=== PATIENT | male | born 1980 | race American Indian/Alaskan Native ===

== ENCOUNTER 2021-10-22 18:22 | Emergency (ER) | payer MEDICAID ==
[2021-10-22 18:39] VITALS: BP 100/70
--- NOTE | 2021-10-22 19:24 | Emergency Department Report ---
HPI - General Chief Complaint: Alcohol PUI?: No Time Seen by Provider: 10/22/21 19:05 - HPI HPI: This patient is a male with unknown name unknown age unknown date of , who was brought in by EMS. EMS personnel is not readily available for me to speak to them directly. Charge nurse and Anh reports she was informed by EMS that the patient was found lying down at a gas station. He appeared intoxicated with alcohol. EMS was called and they states that the patient refused to give them his name. He is found to have multiple pieces of male in his pockets and these pieces of male had the names of different people. When asked emergency department his name, the patient states "nope!". Pt does not provide further information. ED Review of Systems ROS: Stated complaint: ETOH/AMS Other details as noted in HPI Physical Exam - Physical Exam Vital Signs: Vital Signs 10/22/21 18:33 Pulse Rate 75 Respiratory 16 Rate Blood Pressure 100/70 [Left] O2 Sat by Pulse 100 Oximetry ED Course Vital Signs 10/22/21 18:33 Pulse Rate 75 Respiratory 16 Rate Blood Pressure 100/70 [Left] O2 Sat by Pulse 100 Oximetry Critical care attestation.: If time is entered above; I have spent that time in minutes in the direct care of this critically ill patient, excluding procedure time. ED Disposition Condition: Stable
[2021-10-22 19:34] LABS: Basophils # (Auto) 0.1 K/mm3 (0.0-0.1); Basophils % (Auto) 0.7 % (0.0-1.8); Eosinophils # (Auto) 0.2 K/mm3 (0.0-0.4); Eosinophils % (Auto) 2.3 % (0.0-4.3); Hematocrit 46.3 % (35.5-45.6); Hemoglobin 15.4 gm/dl (11.8-15.2); Lymphocytes # (Auto) 1.6 K/mm3 (1.2-5.4); Lymphocytes % (Auto) 17.1 % (13.4-35.0); Mean Corpuscular HGB Conc 33 % (32-34); Mean Corpuscular Volume 83 fl (84-94); Monocytes # (Auto) 0.3 K/mm3 (0.0-0.8); Monocytes % (Auto) 2.7 % (0.0-7.3); Platelet Count 210 K/mm3 (140-440); Red Blood Count 5.59 M/mm3 (3.65-5.03); Red Cell Distribution Width 14.1 % (13.2-15.2)
[2021-10-22 19:57] LABS: Albumin 4.9 g/dL (3.9-5); Calcium 9.6 mg/dL (8.4-10.2)
--- NOTE | 2021-10-22 20:34 | Event Note ---
Date: 10/22/21 Registration has confirmed that the pt has provided his legal name and : Ronda Kruse : 1980. Per registration, pt's labs and profiles will merge. All documentation ongoing, will be placed under the pt's name above via another chart on the electronic tracker.
--- NOTE | 2021-10-22 20:45 | XRay Report ---
CHEST 1 VIEW 10/22/2021 7:38 PM INDICATION / CLINICAL INFORMATION: Weakness. COMPARISON: None currently available. FINDINGS: SUPPORT DEVICES: None. HEART / MEDIASTINUM: The heart size and pulmonary vasculature are normal. The aorta is normal in elio lara. LUNGS / PLEURA: No significant pulmonary or pleural abnormality. No pneumothorax. ADDITIONAL FINDINGS: No significant additional findings. IMPRESSION: No acute findings. Signer Name: Mehdi Hairston MD Signed: 10/22/2021 8:40 PM Workstation Name: [id number]
== END 2021-10-25 04:49 | disposition home or self-care (01) ==
LOC: ED 18:22
DX: R41.82 Altered mental status, unspecified (principal); Z53.21 Procedure and treatment not carried out due to patient leaving prior to being seen by health care provider
CPT/HCPCS: 36415; 71045; 80053; 80320; 85025; G0480